=== PATIENT | male | born 1980 | race Caucasian/White ===

== ENCOUNTER 2022-06-27 12:25 | Emergency (ER) | payer BC, SELFPAY ==
--- NOTE | ~2022-06-27 | CT_ITS ---
EXAMINATION: CT abdomen pelvis w con DATE: 06/27/2022 14:46 INDICATION: Epigastric pain and elevated lipase TECHNIQUE: Computed tomography (CT) of the abdomen and pelvis was performed with 100 mL Omnipaque-350 intravenous contrast. Automated exposure control and iterative reconstruction technique were employe d. The dose-length product was 783.26 mGy-cm. COMPARISON: 08/14/2013 FINDINGS: Lung bases are clear. Heart size normal. No pericardial or pleural effusion. Liver, gallbladder, sple en, pancreas, bilateral adrenal glands or kidneys are normal. Bowels including the appendix are milagros l. No free intraperitoneal gas or fluid. No pathologically enlarged abdominal or pelvic lymphadenopat hy. Right supra-acetabular bone island. IMPRESSION: 1. No acute intra-abdominal/pelvic process. Reviewed, dictated and finalized at location B.
--- NOTE | ~2022-06-27 | XR_ITS ---
EXAMINATION: XR chest 2V DATE: 06/27/2022 12:56 INDICATION: Midsternal chest pain. TECHNIQUE: Frontal and lateral views of the chest were obtained. COMPARISON: CT abdomen and pelvis 08/14/2013 FINDINGS: The chest demonstrates clear lungs without pneumonia, pleural effusion, or pneumothorax. Th e heart size is normal. IMPRESSION: 1. No acute cardiopulmonary disease. Reviewed, dictated and finalized at location A.
--- NOTE | 2022-06-27 12:26 | ECG_ITS ---
Measurements Intervals [place] Rate: 75 P: 59 VA: 188 QRS: 57 QRSD: 104 T: 56 QT: 374 QTc: 420 Interpretive Statements SINUS RHYTHM NORMAL ECG NO PREVIOUS ECG AVAILABLE FOR COMPARISON Electronically Signed On 06-27-2022 13:04:58 CDT by Misael Suazo D.O.
[2022-06-27] MEDS: ASPIRIN 81 MG CHEWABLE TABLET 324 MG PO (12:29)
[2022-06-27 12:40] VITALS: BP 151/80; PULSE 82; RESP 13; TEMP 36.4; O2SAT 100
[2022-06-27 12:44] LABS: Basophils Absolute Auto 0.1 K/mm3 (0.0-0.1); Basophils Percent Auto 0.8 % (0.2-1.2); Eosinophils Absolute Auto 0.1 K/mm3 (0-0.3); Eosinophils Percent Auto 0.8 % (0-4.4); Hematocrit 41.4 % (42.0-52.0); Hemoglobin 14.3 g/dL (14.0-18.0); Lymphocytes Absolute Auto 3.12 K/mm3 (0.9-3.2); Lymphocytes Percent Auto 47.9 % (18.3-44.2); Mean Corpuscular HGB Conc 34.5 g/dl (32-36); Mean Corpuscular Hemoglobin 30.6 pg (26-34); Mean Corpuscular Volume 88.5 fl (80-100); Mean Platelet Volume 8.8 fl (7.4-10.4); Monocytes Absolute Auto 0.4 K/mm3 (0.1-0.6); Monocytes Percent Auto 5.7 % (2.6-8.5); Neutrophils Absolute Auto 2.9 K/mm3 (1.3-6.7); Neutrophils Percent Auto 44.8 % (45.5-73.1); Platelet Count Result 172 k/mm3 (150-375); Red Blood Count 4.68 M/mm3 (4.6-6.20); Red Cell Distribution Width 12.6 % (11.5-14.5); White Blood Count 6.5 K/mm3 (4.5-10.0)
[2022-06-27 12:57] LABS: Prothrombin Time 13.2 Seconds (11.1-14.7)
[2022-06-27 12:58] LABS: Partial Thromboplastin Time 28.4 SECONDS (22.3-36.8)
[2022-06-27 12:59] LABS: Alanine Aminotransferase 23 U/L (6-50); Albumin Level 4.7 g/dL (3.5-5.1); Alkaline Phosphatase 54 U/L (38-126); Anion Gap 10 mmol/L (8-16); Aspartate Amino Transferase 19 U/L (17-59); Bilirubin,Total 1.8 mg/dL (0.2-1.3); Blood Urea Nitrogen 14 mg/dL (9-20); Calcium 8.8 mg/dL (8.4-10.2); Carbon Dioxide 26 mmol/L (22-30); Chloride 103 mmol/L (98-107); Estimated CRCL calculation 88 ml/min; Estimated Glomerular Filt Rate > 60; Glucose 123 mg/dL (65-110); Lipase 307 U/L (23-300); Potassium 3.6 mmol/L (3.4-5.0); Sodium 139 mmol/L (137-145)
[2022-06-27 13:11] LABS: Troponin I < 0.012 ng/mL (0.000-0.034)
[2022-06-27] MEDS: PANTOPRAZOLE SODIUM IV 40 MG VIAL IV PUSH (14:16)
[2022-06-27 14:18] VITALS: BP 130/95; PULSE 59; RESP 20; O2SAT 98
--- NOTE | 2022-06-27 15:24 | ED.GENADULT ---
HPI - General Adult General Chief complaint: Chest Pain Stated complaint: CP Time Seen by Provider: 06/27/22 13:57 History of Present Illness HPI narrative: Patient presenting with some chest discomfort and epigastric pain that for started this morning after he drank a cup of black coffee, he tried eating some food but after eating lunch the pain got worse. Has had acid reflux in the past for which he takes Tums. No nausea or vomiting. Does admit to poor diet over the last few days. Related Data Allergies Allergy/AdvReac Type Severity Reaction Status Date / Time tetracycline Allergy Unknown rash, Verified 05/03/16 13:29 stomach issues Review of Systems Review of Systems: CONST: No fever. HEENT: No sore throat C/V: Reports low chest discomfort RESP: No cough GI: Reports epigastric abdominal pain : No dysuria. M/S: No joint pain. SKIN: No rash. NEURO: [No headache or focal numbness or weakness] PSYCH: [No depression] [facility] Family History Family History Father Family history of thyroid disease Family history of malignant neoplasm of urinary bladder Mother Hypertension Grandparent Family history of cardiovascular disease Other Diabetes mellitus Social History Social History Smoking status: Former smoker Alcohol intake: current Exam Narrative: EXAMINATION OF ORGAN SYSTEMS/BODY AREAS: Constitutional: Vital signs per nursing GENERAL:[No acute distress, non-toxic appearing.] HEAD: Normal with no signs of head trauma. EYES: EOMI, conjunctiva normal ENT: Hearing grossly intact LUNGS: Nonlabored breathing. HEART: [Regular rate and rhythm] ABD: [Soft], minimally [tender to deep palpation epigastric region] EXT: Normal range of motion SKIN: [No rashes or lesions.] NEURO: [Alert and oriented x 3. No gross focal sensory or strength deficits.] PSYCH: Normal affect Course Vital Signs Vital signs: Vital Signs Temperature 97.6 F 06/27/22 12:40 Pulse Rate 82 06/27/22 12:40 Respiratory Rate 13 06/27/22 12:40 Blood Pressure 151/80 H 06/27/22 12:40 Pulse Oximetry 100 06/27/22 12:40 Oxygen Delivery Room Air 06/27/22 12:40 Temperature 97.6 F 06/27/22 12:40 Pulse Rate 60 06/27/22 15:37 Respiratory Rate 15 06/27/22 15:37 Blood Pressure 133/89 06/27/22 15:37 Pulse Oximetry 99 06/27/22 15:37 Oxygen Delivery Room Air 06/27/22 14:12 Medical Decision Making MDM Narrative Medical decision making narrative: Electronic medical record was reviewed. Patient presented to the ED with complaint of epigastric abdominal and chest pain. Vitals [were within acceptable limits]. Physical exam revealed soft, minimally tender epigastric abdomen. EKG done in triage negative for acute ischemic changes. Cardiac and abdominal workup is initiated. EKG: Performed in triage and interpreted by me. Normal sinus rhythm. Rate [75]. Normal axis. LA normal. QRS duration normal. QTc normal. No pathologic Q waves. No ST segment elevation or depression to suggest acute ischemia. No RV strain pattern. HEART score is 0 with no acute ischemic changes on EKG and negative troponin making ACS unlikely. Wells low risk with negative PERC making PE unlikely. Presentation not consistent with dissection or aneurysm without radiation of pain or pulse deficits. CXR negative for mediastinal widening. Chest x-ray independently interpreted by myself and reviewed by radiology, no acute abnormality. Based on the patient's history and physical exam, my differential includes but is not limited to [gastritis, cholecystitis, pancreatitis]. [IV access was established by nursing staff. Patient was given Protonix]. CBC, BMP, lipase, LFTs, bilirubin and alk phos were obtained. Labs were pertinent for very minimally elevated lipase and bilirubin. [Decision was made to obtain a CT-abdomen to evaluate for a
[2022-06-27 15:37] VITALS: BP 133/89; PULSE 60; RESP 15; O2SAT 99
== END 2022-06-27 15:39 | disposition home or self-care (01) ==
PROVIDERS: Emergency Provider Emergency Medicine
DX: R07.89 Other chest pain (principal); R10.13 Epigastric pain; Z87.891 Personal history of nicotine dependence
CPT/HCPCS: 36415; 71046; 74177; 80053; 83690; 84484; 85025; 85610; 85730; 93005; 96374; 99284; A9270; C9113; Q9967